=== PATIENT | female | born 1950 | race American Indian/Alaskan Native ===

== ENCOUNTER 2018-01-13 19:31 | Emergency (ER) | payer MEDICARE ==
[2018-01-13 21:02] LABS: Basophils # (Auto) 0.1 K/mm3 (0.0-0.1); Basophils % (Auto) 1.3 % (0.0-1.8); Eosinophils # (Auto) 0.1 K/mm3 (0.0-0.4); Eosinophils % (Auto) 1.4 % (0.0-4.3); Hematocrit 46.7 % (30.3-42.9); Hemoglobin 15.6 gm/dl (10.1-14.3); Lymphocytes # (Auto) 2.4 K/mm3 (1.2-5.4); Lymphocytes % (Auto) 25.7 % (13.4-35.0); Mean Corpuscular HGB Conc 33 % (30-34); Mean Corpuscular Hemoglobin 30 pg (28-32); Mean Corpuscular Volume 90 fl (79-97); Monocytes # (Auto) 0.8 K/mm3 (0.0-0.8); Monocytes % (Auto) 8.7 % (0.0-7.3); Platelet Count 284 K/mm3 (140-440); Red Blood Count 5.22 M/mm3 (3.65-5.03); Red Cell Distribution Width 13.6 % (13.2-15.2)
[2018-01-13 21:13] LABS: Bacteria,Urine 2+ /HPF (Negative); Bilirubin,Urine NEG (Negative); Blood,Urine SM (Negative); Color,Urine Yellow (Yellow); Mucus,Urine FEW /HPF; Protein,Urine <15 mg/dL mg/dL (Negative); Urobilinogen,Urine < 2.0 mg/dL (<2.0)
[2018-01-13 21:15] LABS: Alanine Aminotransferase 6 units/L (7-56); Albumin 3.7 g/dL (3.9-5); BUN/Creatinine Ratio 17; Blood Urea Nitrogen 10 mg/dL (7-17); Calcium 9.1 mg/dL (8.4-10.2); Hemolysis Index 18
--- NOTE | 2018-01-13 22:32 | Cat Scan Report ---
FINAL REPORT PROCEDURE: CT HEAD/BRAIN WO CON TECHNIQUE: Computerized tomography of the head was performed without contrast material. HISTORY: Syncope COMPARISON: No prior studies are available for comparison. FINDINGS: Skull and scalp: Normal. Paranasal sinuses: Bilateral paranasal sinuses are clear. There is partial opacification of left mastoid air cells.. Ventricles and subarachnoid spaces: Are prominent consistent with cerebral atrophy appropriate for patient's age.. Cerebrum: Old lacunar infarcts are noted involving right basal ganglia. An acute intra-axial or extra-axial hemorrhage is not identified. There is no mass effect.. Cerebellum and brainstem: Prominent cerebellar sulci are noted consistent with cerebellar atrophy.. Vasculature: Atherosclerotic calcification is noted involving bilateral internal carotid and vertebral arteries.. Comments: None. IMPRESSION: No acute intracranial abnormality Old lacunar infarcts right basal ganglia Left mastoiditis
--- NOTE | 2018-01-14 02:33 | Emergency Department Report ---
ED Syncope HPI - General Chief Complaint: Syncope Stated Complaint: HAND MOVEMENT Time Seen by Provider: 01/14/18 02:32 - History of Present Illness Initial Comments: Patient brought in by daughter with complaint of near syncope, and patient's primary complaint is that she feels that she is having involuntary movement of her hands. Pertinent history is that patient was being driven by daughter earlier in the afternoon, when she became poorly responsive, slumped in the car seat, and patient was unable to rouse patient for several minutes, and was concerned that she was having a seizure, came directly to the emergency department. She felt that the eyes were open, that this was side of the seizure, but patient was not responsive, and generally limp throughout the episode. She also reports the patient had a couple of episodes after she had arrived in the emergency department, although this was not observed by nursing staff. Patient has been comfortable while in the emergency department waiting for treatment, and is asymptomatic, with stable vital signs at time of examination. Past medical history is significant for coronary artery disease, hypertension, hyperlipidemia, breast cancer, COPD with active tobacco abuse, but no history of diabetes. She has had prior coronary artery bypass grafting in 2011, and also has had stents. She also has a history of breast cancer one year ago, treated with lumpectomy as well as chemotherapy, but is currently receiving no treatment for this. She takes a diuretic for her hypertension, but does not take any potassium replacement. She's not had any prior stroke. She has no focal neurologic deficit, but reports that she has some trembling of her right hand, although this is been noted for several days, and not immediately active at time of initial examination, and total duration is somewhat vague and possibly recurrent. Patient feels well at time of my examination, is not lightheaded, does not feel dizzy, vertiginous, has no pains, no difficulty breathing. - Related Data Allergies/Adverse Reactions: Allergies No Known Allergies Allergy (Verified 01/13/18 20:12) Home Medications: Ambulatory Orders Amoxicillin/Potassium Clav [Augmentin 875-125 Tablet] 1 each PO BID #20 tablet 01/14/18 Potassium Chloride [Klor-Con 10] 10 meq PO DAILY #30 tablet.er 01/14/18 ED Review of Systems ROS: Stated complaint: HAND MOVEMENT Other details as noted in HPI ED Past Medical Hx - Past Medical History Hx Hypertension: Yes Hx Heart Attack/AMI: (CAD) Hx COPD: Yes Additional medical history: hyperlidemia - Surgical History Hx Coronary Stent: Yes (stent x1) Hx Open Heart Surgery: Yes (x4 vessels) - Social History Smoking Status: Current Every Day Smoker Substance Use Type: None - Medications Home Medications: Home Medications Medication Instructions Recorded Confirmed Last Taken Type Amoxicillin/Potassium Clav 1 each PO BID #20 tablet 01/14/18 Unknown Rx [Augmentin 875-125 Tablet] Potassium Chloride [Klor-Con 10] 10 meq PO DAILY #30 tablet.er 01/14/18 Unknown Rx ED Physical Exam - General Limitations: No Limitations ED Course Vital Signs 01/13/18 01/13/18 01/14/18 20:12 23:16 00:36 Temperature 36.8 C Pulse Rate 76 72 Respiratory 16 18 Rate Blood Pressure 186/84 147/63 O2 Sat by Pulse 97 100 99 Oximetry ED Medical Decision Making - Lab Data Result diagrams: 01/13/18 20:39 01/13/18 20:39 Urinalysis shows significant urinary tract infection with 50 white cells, large leukocyte esterase, 2+ bacteriuria. Patient also has a significant hypokalemia with a potassium of 3.2 - EKG Data -: EKG Interpreted by Fl EKG shows normal: sinus rhythm (70 bpm 70 bpm), axis (normal QRS axis, 60), intervals (normal QT interval, 427 ms corrected), QRS complexes (left ventricular hypertrophy by voltage criteria, precordial leads), ST-T waves ( secondary repolarization changes secondary to LVH) - Radiology Data Radiology results: report reviewed CT report shows patient has lacunar infarcts in the right basal ganglion, but no acute intracranial changes otherwise. Opacity location is noted and left mastoid area, consistent with a left mastoiditis. - Medical Decision Making Patient has findings of an acute syncopal episode, which is likely prolonged by daughters keeping patient in the persistent upright position while in the car, with some residual and slow improvement after registration emergency department , and patient is asymptomatic at this time. Laboratory evaluation shows a significant urinary tract infection, as well as a significant hypokalemia, and patient is also likely dehydrated. Forcefully, there are no acute findings to suggest any cardiac or neurologic process, and remainder of evaluation is unstable. She is asymptomatic with respect to any ear symptoms, it is not clear whether this represents an acute mastoiditis or chronic symptoms. In any case, I will treat patient with Augmentin for urinary tract infection, and will provide potassium supplementation, with recommendation for repeat examination by physician in the coming week. - Differential Diagnosis sacral episode, cardiac syncope, dehydration, infection Critical Care Time: No Critical care attestation.: If time is entered above; I have spent that time in minutes in the direct care of this critically ill patient, excluding procedure time. ED Disposition Clinical Impression: Dehydration, Mastoiditis of left side, Hypokalemia Urinary tract infection Qualifiers: Urinary tract infection type: acute cystitis Hematuria presence: without hematuria Qualified Code(s): N30.00 - Acute cystitis without hematuria Syncopal episodes Qualifiers: Syncope type: unspecified Qualified Code(s): R55 - Syncope and collapse Disposition: TO HOME OR SELFCARE Is pt being admited?: No Does the pt Need Aspirin: No Condition: Stable Instructions: Syncope (ED), Dehydration (ED), Urinary Tract Infection in Women (ED), Hypokalemia (ED) Prescriptions: Amoxicillin/Potassium Clav [Augmentin 875-125 Tablet] 1 each PO BID #20 tablet Potassium Chloride [Klor-Con 10] 10 meq PO DAILY #30 tablet.er Referrals: PRIMARY CARE, [Primary Care Provider] - 3-5 Days Time of Disposition: 03:20
[2018-01-14] MEDS ORDERED: AUGMENTIN 875 MG PO ONE (03:22)
[2018-01-14] MEDS ORDERED: K-DUR PO ONE (03:22)
[2018-01-14 03:37] VITALS: BP 178/78
== END 2018-01-14 03:30 | disposition home or self-care (01) ==
LOC: ED 19:31
DX: N39.0 Urinary tract infection, site not specified (principal); E86.0 Dehydration; R55 Syncope and collapse; H70.92 Unspecified mastoiditis, left ear; I11.0 Hypertensive heart disease with heart failure; J44.9 Chronic obstructive pulmonary disease, unspecified; E78.5 Hyperlipidemia, unspecified; F17.200 Nicotine dependence, unspecified, uncomplicated; Z95.1 Presence of aortocoronary bypass graft
CPT/HCPCS: 36415; 70450; 80053; 81001; 85025; 93005; 93010